=== PATIENT | female | born 1985 ===

== ENCOUNTER 2022-02-08 11:50 | Observation (INO) ==
[2022-02-08] MEDS ORDERED: ONDANSETRON 4 MG/2 ML VIAL IV STA (12:56)
[2022-02-08] MEDS ORDERED: HYDROmorphone 1 MG/1 ML SYRINGE IV STA ×2 (12:56→15:12)
[2022-02-08] MEDS ORDERED: SODIUM CHLORIDE 0.9% 1,000 ML IV STA ×2 (12:56→15:25)
[2022-02-08 14:11] LABS: Basophils % 0.2 % (0.0-0.8); Eosinophils # 0.1 10*3/uL (0.0-0.87); Eosinophils % 0.8 % (0.00-10.9); Hematocrit 42.7 VOL% (35.7-47.0); Hemoglobin 14.2 GM/DL (12.0-16.0); Immature Granulocytes % 0.3 %; Immature Granulocytes Absolute 0.02 #; Lymphocytes # 0.7 10*3/uL (1.4-4.0); Lymphocytes % 11.7 % (21.3-54.2); Mean Corpuscular HGB Conc 33.3 GM/DL (32-36); Mean Corpuscular Volume 80.9 FL (87-102); Mean Platelet Volume 10.1 FL (9.6-12.0); Monocytes # 0.2 10*3/uL (0.11-0.8); Monocytes % 3.5 % (1.7-12.7); Neutrophils % 83.5 % (38.7-73.9); Platelet Count 116 T/CUMM (130-400); Red Blood Count 5.28 MC/CUMM (3.8-5.5); Red Cell Distribution Width 13.2 % (9.3-17.3)
[2022-02-08 14:30] LABS: Bilirubin,Total 1.1 MG/DL (0.20-1.00); Calcium 7.2 MG/DL (8.5-10.1); Osmolality,Calculated 282.8 MOS/KG (273-304); Potassium 3.3 MMOL/L (3.5-5.1); Total Protein 5.2 G/DL (6.4-8.2)
[2022-02-08 15:42] LABS: Amorphous Crystals,Urine Occasional /HPF (Few); Bacteria,Urine Occasional /HPF (Few); Bilirubin,Urine Negative (Negative); Blood, Urine Small mg/dL (Negative); Glucose,Urine (UA) Negative (Negative); Ketones,Urine Negative (Negative); Mucus,Urine Occasional /LPF (Occasional); Nitrite,Urine Negative (Negative); Protein,Urine Negative (Negative); RBC,Urine 6 /HPF (0-4); Squamous Epithelial Cell,Urine Moderate /HPF (0-10); Urine Appearance CLOUDY (Clear); Urine Color Yellow (Yellow); Urine Specific Gravity 1.011 (1.001-1.035); Urine Urobilinogen < 2.0 eU/dL (<2.0)
[2022-02-08] MEDS ORDERED: HYDROmorphone 1 MG/1 ML SYRINGE IV PRN (15:47)
[2022-02-08] MEDS ORDERED: diphenhydrAMINE 50 MG/1 ML VIAL IV STA (15:58)
[2022-02-08] MEDS ORDERED: DEXTROSE 5% NACL 0.45% 1,000 ML IV SCH (16:00)
[2022-02-08] MEDS ORDERED: POTASSIUM CHLORIDE RIDER 10 MEQ/100 ML PREMIX IV PRN (16:23)
[2022-02-08] MEDS ORDERED: fentaNYL 100 MCG/2 ML VIAL IV PRN ×2 (16:44→20:06)
[2022-02-08] MEDS: ONDANSETRON 4 MG/2 ML VIAL IV PRN (19:35)
[2022-02-08] MEDS: POTASSIUM CHLORIDE RIDER 10 MEQ/100 ML PREMIX IV SCH ×2 (21:56→21:57)
[2022-02-08] MEDS: ENOXAPARIN 40 MG/0.4 ML SYRINGE SUBCUT SCH (22:38)
[2022-02-08] MEDS: PANTOPRAZOLE 40 MG TABLET PO SCH (22:38)
[2022-02-08] MEDS: GABAPENTIN 100 MG CAPSULE PO SCH (22:38)
[2022-02-08] MEDS: levETIRAcetam 500 MG TABLET PO SCH (22:38)
[2022-02-08] MEDS: HYDROCORTISONE 100 MG VIAL IV SCH (22:52)
[2022-02-08] MEDS: DEXTROSE 5% NACL 0.9% 1,000 ML IV SCH (22:52)
[2022-02-09] MEDS: HYDROCORTISONE 100 MG VIAL IV SCH ×3 (05:41→21:09)
[2022-02-09] MEDS: DEXTROSE 5% NACL 0.9% 1,000 ML IV SCH ×3 (05:44→21:17)
[2022-02-09 06:12] LABS: Basophils % 0.3 % (0.0-0.8); Eosinophils % 0.6 % (0.00-10.9); Hematocrit 33.3 VOL% (35.7-47.0); Lymphocytes # 0.7 10*3/uL (1.4-4.0); Lymphocytes % 20.7 % (21.3-54.2); Mean Corpuscular Volume 84.3 FL (87-102); Mean Platelet Volume 10.1 FL (9.6-12.0); Monocytes # 0.2 10*3/uL (0.11-0.8); Monocytes % 4.5 % (1.7-12.7); Neutrophils % 73.9 % (38.7-73.9); Platelet Count 133 T/CUMM (130-400); Red Blood Count 3.95 MC/CUMM (3.8-5.5); Red Cell Distribution Width 12.9 % (9.3-17.3); White Blood Count 3.5 T/CUMM (4-12)
[2022-02-09 06:33] LABS: Eosinophils 1 % (0-10); Lymphocytes 24 % (20-55); Total Cells Counted 100
[2022-02-09 06:34] LABS: Bilirubin,Total 1.7 MG/DL (0.20-1.00); Calcium 8.7 MG/DL (8.5-10.1); Osmolality,Calculated 283.8 MOS/KG (273-304); Potassium 4.1 MMOL/L (3.5-5.1); Total Protein 5.6 G/DL (6.4-8.2)
[2022-02-09] MEDS ORDERED: fentaNYL 100 MCG/2 ML VIAL IV PRN (08:18)
[2022-02-09] MEDS ORDERED: PANTOPRAZOLE 40 MG VIAL IV SCH (09:00)
[2022-02-09] MEDS ORDERED: SERTRALINE 25 MG TABLET PO SCH (09:00)
[2022-02-09] MEDS: SERTRALINE 100 MG TABLET PO SCH (09:50)
[2022-02-09] MEDS: levETIRAcetam 500 MG TABLET PO SCH ×2 (09:50→21:08)
[2022-02-09] MEDS: ONDANSETRON 4 MG/2 ML VIAL IV PRN (09:50)
[2022-02-09] MEDS: PANTOPRAZOLE 40 MG TABLET PO SCH ×2 (09:50→21:08)
[2022-02-09 10:30] LABS: Bilirubin,Direct 0.42 MG/DL (0.0-0.20); Bilirubin,Total 1.4 MG/DL (0.20-1.00)
[2022-02-09 11:11] LABS: Hepatitis B Core IgM Quant 0.17 Index; Hepatitis B Surface Ag Quant < 0.10 Index; Hepatitis B Surface Ag Result Non-Reactive (NonReactive); Hepatitis C Virus Ab Quant 0.05 Index; Hepatitis C Virus Ab Result Non-Reactive (NonReactive)
[2022-02-09] MEDS: ENOXAPARIN 40 MG/0.4 ML SYRINGE SUBCUT SCH (21:08)
[2022-02-09] MEDS: DOCUSATE SODIUM 100 MG CAPSULE PO SCH (21:08)
[2022-02-09] MEDS: GABAPENTIN 100 MG CAPSULE PO SCH (21:08)
[2022-02-10] MEDS: DEXTROSE 5% NACL 0.9% 1,000 ML IV SCH ×2 (03:29→18:00)
[2022-02-10] MEDS: HYDROCORTISONE 100 MG VIAL IV SCH (05:14)
[2022-02-10 06:01] LABS: Basophils % 0.5 % (0.0-0.8); Eosinophils % 0.3 % (0.00-10.9); Hematocrit 28.5 VOL% (35.7-47.0); Hemoglobin 9.4 GM/DL (12.0-16.0); Immature Granulocytes % 0.3 %; Immature Granulocytes Absolute 0.01 #; Lymphocytes # 1.4 10*3/uL (1.4-4.0); Lymphocytes % 36.8 % (21.3-54.2); Mean Corpuscular Volume 82.4 FL (87-102); Mean Platelet Volume 10.3 FL (9.6-12.0); Monocytes # 0.4 10*3/uL (0.11-0.8); Monocytes % 9.5 % (1.7-12.7); Neutrophils % 52.6 % (38.7-73.9); Platelet Count 102 T/CUMM (130-400); Red Blood Count 3.46 MC/CUMM (3.8-5.5); Red Cell Distribution Width 13.2 % (9.3-17.3); White Blood Count 3.9 T/CUMM (4-12)
[2022-02-10 06:16] LABS: Calcium 8.4 MG/DL (8.5-10.1); Osmolality,Calculated 287.6 MOS/KG (273-304); Potassium 3.7 MMOL/L (3.5-5.1)
[2022-02-10 06:18] LABS: Hypochromia Slight; Microcytosis Slight; Platelet Estimate Decreased
[2022-02-10] MEDS ORDERED: HYDROCORTISONE 10 MG TABLET PO SCH ×2 (08:00→16:00)
[2022-02-10] MEDS ORDERED: HYDROCORTISONE 100 MG VIAL IV SCH (09:00)
[2022-02-10] MEDS ORDERED: LACTATED RINGERS 1,000 ML IV SCH (09:00)
[2022-02-10] MEDS ORDERED: LIDOCAINE 2% 5 ML VIAL ONE (09:59)
[2022-02-10] MEDS ORDERED: propofoL 200 MG/20 ML VIAL IV ONE (09:59)
[2022-02-10] MEDS: SERTRALINE 100 MG TABLET PO SCH (11:27)
[2022-02-10] MEDS: DOCUSATE SODIUM 100 MG CAPSULE PO SCH (11:27)
[2022-02-10] MEDS: levETIRAcetam 500 MG TABLET PO SCH (11:27)
[2022-02-10] MEDS: PANTOPRAZOLE 40 MG TABLET PO SCH (11:28)
[2022-02-10] MEDS ORDERED: PROMETHAZINE 25 MG TABLET PO PRN (13:48)
[2022-02-10 16:37] VITALS: BP 101/54
[2022-02-10] MEDS ORDERED: POLYETHYLENE GLYCOL POWDER 17 GM PACK PO SCH (21:00)
== END 2022-02-10 17:53 | disposition home or self-care (01) ==
LOC: N.ED 11:50 → N.EDINP 11:50 → N.TELES 20:22 → N.2E 02-09 14:53 → N.TELES 02-09 14:55
PROVIDERS: ADMIT Internal Medicine; ATTEND Internal Medicine